=== PATIENT | female | born 1965 | race Caucasian/White ===

== ENCOUNTER 2016-09-06 13:12 | Inpatient (IN) | payer OTHER ==
[~2016-09-06] VITALS: Ht 170.2 cm; Wt 75.7 kg
--- NOTE | ~2016-09-06 | HC ---
[facility] [place] [address] CONSULTATION Name: ANTONY LANGLEY Room #: 436-P [facility]#: [id number] Admission: 09/06/16 Attend Phys: Yves Torres MD Discharge: 09/09/16 Date of : 63 Report #: [id number] THIS REPORT FOR: //name// CC: Yves Phillips PRIMARY CARE PHYSICIAN: Eric Wilson M.D. He is out of [place], [place]. REFERRING PHYSICIAN: Dr. Torres. REASON FOR FOLLOWUP: Hemoptysis. HISTORY OF PRESENT ILLNESS: The patient is a 51-year-old white female who was admitted with hemoptysis and exacerbation of COPD. A pulmonary consultation was requested. The patient was diagnosed with COPD in around 2006. She was also found to be alpha 1 antitrypsin deficient. She has been on replacement therapy ever since. Her baseline pulmonary functions show severe airflow obstruction. The baseline FEV1 measured 0.45 liters, 15% predicted and FVC measured 1.6 liters, 41% predicted. She has been seen at [facility] regarding possible lung transplantation several years ago. At this time, she has expressed that she does not wish to proceed with further evaluation regarding lung transplantation. She had been doing fairly well until 2 weeks prior to presentation, she developed a febrile illness, myalgias and sore throat. Several days ago, she started to develop speckled hemoptysis. For that reason, she called a Dr. Phillips, who is a therapeutic radiologist who follows her longitudinally. He advised admission. Otherwise, denies any chest pain, nausea, vomiting or diarrhea. Hemoptysis is said to be speckled, less than 2 ____ teaspoons. She denies any past history of hemoptysis. No recent weight loss. Reviewing the records, Dr. Phillips has mentioned that a CT chest angiogram was performed, which does not show any evidence of pulmonary embolus. PAST MEDICAL HISTORY: As mentioned above including alpha 1 antitrypsin deficiency, severe COPD, severe pulmonary impairment, chronic hypoxic respiratory failure, on O2 chronically. PAST SURGICAL HISTORY: Negative. [facility] [address] [place] [address] CONSULTATION Name: VICKIE LANGLEYIDI Room #: 436-P [facility]#: [id number] Admission: 09/06/16 Attend Phys: Yves Torers MD Discharge: 09/09/16 Date of : 63 Report #: [id number] ALLERGIES: To SULFA, which causes upper airways edema. HOME MEDICATIONS: Include [id number]-wlxczim supplements including L-Arginine, Lysine, Spiriva 1 capsule once a day, Mucinex, nebulized Brovana twice a day, oxygen 3 liters per day, QVAR 80 mcg 1 puff twice a day, Xopenex metered dose inhaler 2 puffs 4 times a day and p.r.n., Aralast 1000 mg and nebulized albuterol 4 times a day p.r.n. FAMILY HISTORY: Mother . Father alive. Multiple members in the family have alpha 1 antitrypsin deficiency including both parents. Her sister has heterozygous alpha 1 antitrypsin deficiency. SOCIAL HISTORY: She has smoked for many years but quit in 2006 after smoking 30 years. She is single, has no children. She lives in [place], [place]. She states that she has worked in various jobs. She notes exposure to a lot of environmental dust. PHYSICAL EXAMINATION: GENERAL: She is awake and alert, in no apparent distress. VITAL SIGNS: Temperature is 99 degrees Fahrenheit, pulse is 119, respiratory rate is 20, blood pressure 128/83 mmHg and saturation 95% on 3 liters of O2. HEENT: Normocephalic and atraumatic. NECK: Supple, without any lymphadenopathy or thyromegaly. CHEST: Breath sounds are decreased bilaterally with mildly prolonged expiratory phase. Mild expiratory wheezes are heard. No rales. CARDIOVASCULAR: Normal S1 and S2. There are no murmurs or gallop. There is no JVD. There is no carotid bruit. Pulses are 2+/4+bilaterally. ABDOMEN: Soft and nontender. No organomegaly or masses felt. EXTREMITIES: There is no edema, cyanosis or clubbing. LABORATORY DATA: Chest x-ray shows hyperexpanded lungs. There is a large bleb and bullae seen in both bases. Moderate apical blebs are also noted. Electrolytes are normal except for creatinine of 1.2. WBC is 6500, hemoglobin 13.9 and platelets are normal. No evidence of bandemia. IMPRESSION: 1. Ejedx-yj-tfegvny hypoxic respiratory failure in this 51-year-old white female. She has alpha 1 antitrypsin deficiency. Prior pulmonary function tests show severe pulmonary impairment with a baseline FEV1 of 0.45 liters or 15% predicted. Exacerbation of chronic obstructive pulmonary disease is likely with possible lower respiratory tract infection. Possible early pneumonia cannot be ruled out. It appears the pulmonary embolus has been ruled out based on her recent workup at [facility]. I do not have those records for review. 2. Chronic obstructive pulmonary disease, severe impairment. Bullous changes [facility] [address] [place] [address] CONSULTATION Name: ANTONY LANGLEY Room #: 436-P [facility]#: [id number] Admission: 09/06/16 Attend Phys: Yves Torres MD Discharge: 09/09/16 Date of : 63 Report #: [id number] are noted on the chest x-ray. The patient did develop a febrile illness a couple of weeks ago with sore throat. Either a viral process or early infection should be suspected. 3. Hemoptysis. Likely due to exacerbation of chronic obstructive pulmonary disease and respiratory tract infection. If hemoptysis persists or worsens, we will proceed with diagnostic bronchoscopy. RECOMMENDATIONS: I agree with current medical treatment plans including corticosteroids, bronchodilators and broad-spectrum antibiotics. We will monitor hemoptysis for now. Codeine for cough suppression. DVT and GI prophylaxis will be addressed. Thank you for the consultation. <ELECTRONICALLY SIGNED> By: Deep Soriano MD 09/11/16 [id number] Deep Soriano MD /nt
[2016-09-06 15:00] VITALS: BP 115/87
[2016-09-06 16:53] LABS: ABSOLUTE NEUTROPHILS 4.4 thou/uL (1.4-8.2); BASOPHILS 0.7 % (0.0-2.0); EOSINOPHILS 1.4 % (0.0-3.0); HEMATOCRIT 41.9 % (37.0-47.0); HEMOGLOBIN 13.9 gm/dL (12.0-15.0); LYMPHOCYTES 23.6 % (24.0-44.0); MANUAL DIFF NO; MCH 30.5 pg (26.0-34.0); MCHC 33.3 g/dL (28.0-37.0); MCV 91.5 fL (80.0-100.0); MONOCYTES 6.9 % (1.0-8.0); PLATELET COUNT 215 thou/uL (150-400); POLYS 67.4 % (36.0-66.0); RBC 4.58 mil/uL (4.20-5.00); RDW 13.1 % (10.5-14.5); WBC 6.5 thou/uL (4.0-11.0)
[2016-09-06 17:01] LABS: CALCIUM 9.5 mg/dL (8.5-10.1); CREATININE 1.2 mg/dL (0.6-1.3); POTASSIUM 4.1 mmol/L (3.5-5.1)
[2016-09-06] MEDS ORDERED: MUCINEX TA600 MG/TA2 PO (17:46)
[2016-09-06] MEDS ORDERED: SPIRIVA INH (17:48)
[2016-09-06] MEDS ORDERED: QVAR8.7 G1 IH (17:48)
[2016-09-06] MEDS ORDERED: BROVANA15 MCG/2 M INH (17:50)
[2016-09-06] MEDS ORDERED: LEVALBUTER1.25 MG/0. INH (17:50)
[2016-09-06] MEDS ORDERED: [UNRECOGNIZED DRUG - OTHER] IJ (17:52)
[2016-09-06] MEDS ORDERED: PERCOCET PO (17:54)
[2016-09-06 19:56] VITALS: BP 119/74
[2016-09-06 23:56] VITALS: BP 98/64
[2016-09-07 04:41] VITALS: BP 101/65
[2016-09-07 08:00] VITALS: BP 112/75
[2016-09-07 12:00] VITALS: BP 128/83
[2016-09-07 16:00] VITALS: BP 122/81
[2016-09-07 16:00] LABS: PROTIME 10.4 Seconds (9.3-11.4)
[2016-09-07 20:00] VITALS: BP 102/74
[2016-09-08 03:43] VITALS: BP 99/64
[2016-09-08 07:25] VITALS: BP 103/57
[2016-09-08 10:20] LABS: HEMATOCRIT 40.6 % (37.0-47.0); HEMOGLOBIN 13.5 gm/dL (12.0-15.0); MCH 30.2 pg (26.0-34.0); MCHC 33.4 g/dL (28.0-37.0); MCV 90.5 fL (80.0-100.0); RBC 4.48 mil/uL (4.20-5.00); RDW 13.1 % (10.5-14.5); WBC 20.2 thou/uL (4.0-11.0)
[2016-09-08 10:33] LABS: ALBUMIN 3.7 g/dL (3.4-5.0); CALCIUM 9.6 mg/dL (8.5-10.1); CREATININE 0.7 mg/dL (0.6-1.3); POTASSIUM 3.7 mmol/L (3.5-5.1)
[2016-09-08 11:30] VITALS: BP 104/74
[2016-09-08 15:48] VITALS: BP 121/72
[2016-09-09 03:30] VITALS: BP 115/55
[2016-09-09 08:41] VITALS: BP 120/79
[2016-09-09] MEDS ORDERED: LEVAQUIN 750 M750 MG PO (11:44)
[2016-09-09] MEDS ORDERED: PREDNISONE 10 M10 MG PO (11:45)
[2016-09-09 12:03] VITALS: BP 115/80
[2016-09-09 12:20] VITALS: BP 120/79
[2016-09-09 14:05] VITALS: BP 120/79
== END 2016-09-09 15:23 | disposition home or self-care (01) | DRG 189 ==
LOC: PRE 13:12 → 4N 13:18 → 4S 14:37
PROVIDERS: Family Medicine; Hospitalist; Internal Medicine Pulmonary Disease
DX: J96.21 Acute and chronic respiratory failure with hypoxia (principal); J44.1 Chronic obstructive pulmonary disease with (acute) exacerbation; R04.2 Hemoptysis; I27.2 Other secondary pulmonary hypertension; E88.01 Alpha-1-antitrypsin deficiency; E11.9 Type 2 diabetes mellitus without complications; Z99.81 Dependence on supplemental oxygen; Z88.2 Allergy status to sulfonamides; Z87.891 Personal history of nicotine dependence; Z79.899 Other long term (current) drug therapy
CPT/HCPCS: 10100